=== PATIENT | female | born 1935 | race Caucasian/White ===

== ENCOUNTER 2021-04-20 19:58 | Inpatient (IN) | payer MEDICARE ==
[~2021-04-20] VITALS: Ht 152.4 cm; Wt 73.5 kg
[2021-04-20 20:28] LABS: HEMOGLOBIN 14.1 gm/dl (12.3-15.3); RED BLOOD COUNT 4.35 M/UL (4.00-5.10); WHITE BLOOD COUNT 8.9 K/UL (4.5-11.0)
[2021-04-20 20:51] LABS: BUN/CREATININE RATIO 20 (0-10)
[2021-04-21] MEDS ORDERED: FUROSEMIDE20 MG PO (02:47)
[2021-04-21] MEDS ORDERED: ISOSORBIDE MONO30 MG PO (02:47)
[2021-04-21] MEDS ORDERED: PRADAXA75 MG PO (02:47)
[2021-04-21] MEDS ORDERED: POTASSIUM CHLO20 ME2 PO (02:47)
[2021-04-21] MEDS ORDERED: RANOLAZINE ER500 MG PO (02:48)
[2021-04-21] MEDS ORDERED: TOLTERODINE TART4 MG PO (02:48)
[2021-04-21] MEDS ORDERED: PRAVASTATIN SOD20 MG PO (02:48)
[2021-04-21] MEDS ORDERED: AMIODARONE HCL200 MG PO (02:49)
[2021-04-21] MEDS ORDERED: METOPROLOL TART50 MG PO (02:49)
[2021-04-21] MEDS ORDERED: SULFAMETHOXAZO1 EACH PO (02:50)
[2021-04-21] MEDS ORDERED: PEG3350510 GM PO (02:51)
[2021-04-21 07:04] LABS: RED BLOOD COUNT 3.85 M/UL (4.00-5.10); WHITE BLOOD COUNT 12.1 K/UL (4.5-11.0)
[2021-04-21 08:08] LABS: BUN/CREATININE RATIO 20 (0-10)
[2021-04-22 07:13] LABS: HEMOGLOBIN 12.3 gm/dl (12.3-15.3); RED BLOOD COUNT 3.9 M/UL (4.00-5.10); WHITE BLOOD COUNT 10.3 K/UL (4.5-11.0)
[2021-04-22 07:15] LABS: BUN/CREATININE RATIO 18 (0-10)
[2021-04-23 07:20] LABS: HEMOGLOBIN 11.1 gm/dl (12.3-15.3); RED BLOOD COUNT 3.47 M/UL (4.00-5.10); WHITE BLOOD COUNT 9.5 K/UL (4.5-11.0)
[2021-04-23 07:56] LABS: BUN/CREATININE RATIO 18 (0-10)
[2021-04-23] MEDS ORDERED: CEFUROXIME250 MG PO (11:38)
== END 2021-04-23 16:15 | disposition home health service (06) | DRG 689 ==
LOC: ER1 19:58 → MED SURG 4 22:27 → CDU 22:27 → MED SURG 4 22:27
PROVIDERS: Emergency Medicine; Internal Medicine; ADMIT Internal Medicine
PROC: B24BZZ4 Ultrasonography of Heart with Aorta, Transesophageal (ICD-10-PCS; principal; 2021-04-22)
DX: N30.00 Acute cystitis without hematuria (principal); G93.41 Metabolic encephalopathy; I50.32 Chronic diastolic (congestive) heart failure; B96.20 Unspecified Escherichia coli [E. coli] as the cause of diseases classified elsewhere; I11.0 Hypertensive heart disease with heart failure; I25.10 Atherosclerotic heart disease of native coronary artery without angina pectoris; E78.5 Hyperlipidemia, unspecified; I48.0 Paroxysmal atrial fibrillation; Z20.822 Contact with and (suspected) exposure to COVID-19; E66.9 Obesity, unspecified; Z95.1 Presence of aortocoronary bypass graft; Z94.89 Other transplanted organ and tissue status; Z95.0 Presence of cardiac pacemaker; Z90.49 Acquired absence of other specified parts of digestive tract; Z98.890 Other specified postprocedural states; Z82.49 Family history of ischemic heart disease and other diseases of the circulatory system; Z88.5 Allergy status to narcotic agent; Z68.31 Body mass index [BMI] 31.0-31.9, adult
CPT/HCPCS: ECHO; 36415; 70450; 71045; 71250; 74019; 80048; 80053; 81001; 82550; 82553; 82962; 83540; 83550; 83605; 83735; 83874; 83880; 84439; 84443; 84484; 85025; 85027; 85610; 85730; 87040; 87077; 87086; 87186; 92610; 93005; 93306; 96374; 97162; 97166; 97530-GP-CQ; 99285; G0378; J0692; J0696; J1940; J2270; J2405; U0002

== ENCOUNTER → 2021-05-05 | Outpatient (CLI) | payer MEDICARE ==
[~2021-05-05] MED LIST: AMIODARONE HCL200 MG PO; CEFUROXIME250 MG PO; FUROSEMIDE20 MG PO; ISOSORBIDE MONO30 MG PO; METOPROLOL TART50 MG PO; PEG3350510 GM PO; POTASSIUM CHLO20 ME2 PO; PRADAXA75 MG PO; PRAVASTATIN SOD20 MG PO; RANOLAZINE ER500 MG PO; SULFAMETHOXAZO1 EACH PO; TOLTERODINE TART4 MG PO
== END ==
LOC: LBRF 14:31
DX: N39.0 Urinary tract infection, site not specified (principal)
CPT/HCPCS: 81001

== ENCOUNTER 2021-06-02 02:58 | Emergency (ER) | payer MEDICARE ==
[2021-06-02 03:14] LABS: HEMOGLOBIN 14.1 gm/dl (12.3-15.3); RED BLOOD COUNT 4.4 M/UL (4.00-5.10); WHITE BLOOD COUNT 8.6 K/UL (4.5-11.0)
[2021-06-02 03:45] LABS: BUN/CREATININE RATIO 19 (0-10)
== END 2021-06-02 09:50 | disposition home or self-care (01) ==
LOC: ER1 02:58 → EDBD 02:58 → ER1 02:58
PROVIDERS: Family Medicine
DX: R07.9 Chest pain, unspecified (principal); R33.9 Retention of urine, unspecified; I50.9 Heart failure, unspecified; I11.0 Hypertensive heart disease with heart failure; Z95.1 Presence of aortocoronary bypass graft
CPT/HCPCS: 71045; 80053; 82550; 82553; 83874; 84484; 85025; 93005; 99284

== ENCOUNTER 2021-07-09 13:27 | Inpatient (IN) | payer MEDICARE ==
[~2021-07-09] VITALS: Ht 152.4 cm; Wt 61.2 kg
[2021-07-09 14:21] LABS: HEMOGLOBIN 12.8 gm/dl (12.3-15.3); WHITE BLOOD COUNT 7.6 K/UL (4.5-11.0)
[2021-07-09 14:48] LABS: BUN/CREATININE RATIO 19 (0-10)
[2021-07-09] MEDS ORDERED: ONDANSETRON HCL4 MG PO (16:57)
[2021-07-10 05:35] LABS: HEMOGLOBIN 12.3 gm/dl (12.3-15.3); RED BLOOD COUNT 3.87 M/UL (4.00-5.10); WHITE BLOOD COUNT 9.1 K/UL (4.5-11.0)
[2021-07-10 05:59] LABS: BUN/CREATININE RATIO 19 (0-10)
[2021-07-11 03:42] LABS: BUN/CREATININE RATIO 33 (0-10)
[2021-07-11 03:53] LABS: HEMOGLOBIN 13.3 gm/dl (12.3-15.3); WHITE BLOOD COUNT 7.8 K/UL (4.5-11.0)
[2021-07-11 03:58] LABS: RED BLOOD COUNT 4.32 M/UL (4.00-5.10)
[2021-07-15 02:40] LABS: HEMOGLOBIN 10.7 gm/dl (12.3-15.3); RED BLOOD COUNT 3.33 M/UL (4.00-5.10); WHITE BLOOD COUNT 7.8 K/UL (4.5-11.0)
[2021-07-15 03:19] LABS: BUN/CREATININE RATIO 29 (0-10)
[2021-07-16 02:49] LABS: BUN/CREATININE RATIO 37 (0-10)
[2021-07-16] MEDS ORDERED: FUROSEMIDE40 MG PO (12:23)
== END 2021-07-16 14:40 | disposition home health service (06) | DRG 193 ==
LOC: ER1 13:27 → CDU 16:09 → MED SURG 4 16:09
PROVIDERS: Internal Medicine; Physician Assistant; ADMIT Internal Medicine
DX: J18.9 Pneumonia, unspecified organism (principal); I50.33 Acute on chronic diastolic (congestive) heart failure; J96.21 Acute and chronic respiratory failure with hypoxia; E87.3 Alkalosis; I48.0 Paroxysmal atrial fibrillation; I25.10 Atherosclerotic heart disease of native coronary artery without angina pectoris; I11.0 Hypertensive heart disease with heart failure; L89.620 Pressure ulcer of left heel, unstageable; L89.312 Pressure ulcer of right buttock, stage 2; L89.152 Pressure ulcer of sacral region, stage 2; E78.5 Hyperlipidemia, unspecified; F03.90 Unspecified dementia, unspecified severity, without behavioral disturbance, psychotic disturbance, mood disturbance, and anxiety; Z20.822 Contact with and (suspected) exposure to COVID-19; Z95.0 Presence of cardiac pacemaker; Z99.81 Dependence on supplemental oxygen; Z95.1 Presence of aortocoronary bypass graft; Z90.49 Acquired absence of other specified parts of digestive tract; Z98.890 Other specified postprocedural states; Z88.6 Allergy status to analgesic agent
CPT/HCPCS: 0240U; 36415; 36600; 71045; 80048; 80053; 81001; 82550; 82553; 82803; 83735; 83880; 84484; 85025; 87040; 92526; 92610; 93005; 96374; 96375; 97162; 97530; 97530-GP-CQ; 99284; 99285; A6212; J0692; J1885; J1940; J2405